=== PATIENT | female | born 1940 | race Caucasian/White ===

== ENCOUNTER → 2024-09-14 21:15 | Outpatient (REF) | payer OTHER, SELFPAY ==
[2024-09-15 10:01] LABS: Urine Albumin 2+ (Neg - Trace); Urine Bilirubin Negative (Negative); Urine Character Slightly Cloudy (Clear); Urine Color Yellow; Urine Glucose Negative (Negative); Urine Ketone Negative (Negative); Urine Leukocyte 3+ (Negative); Urine Nitrite Positive (Negative); Urine Occult Blood 2+ (Negative); Urine Specific Gravity 1.015 (<1.030); Urine Urobilinogen Negative (Neg - 1+)
[2024-09-15 10:51] LABS: Urine Bacteria Few (Negative); Urine Calcium Oxalate Crystals Present; Urine Mucus Few; Urine White Cell 50-60 /HPF (0-5)
== END ==
LOC: CLAB 21:15
PROVIDERS: ATTENDING PHYSICIAN Student in an Organized Health Care Education/Training Program
DX: R30.9 Painful micturition, unspecified (principal)
CPT/HCPCS: 81003; 81015; 87077; 87086

== ENCOUNTER → 2024-11-05 11:22 | Outpatient (REF) | payer OTHER, SELFPAY ==
[2024-11-05 13:02] LABS: ALT (SGPT) 15 U/L (0-35); AST (SGOT) 20 U/L (14-36); Albumin 3.9 g/dl (3.5-5.0); Alkaline Phosphatase 76 U/L (38-126); Blood Urea Nitrogen 24 mg/dl (7-17); Calcium 8.8 mg/dl (8.4-10.2); Carbon Dioxide 33 mmol/L (22-30); Chloride 102 mmol/L (98-107); Glucose 100 mg/dl (70-99); Potassium 3.5 mmol/L (3.5-5.1); Sodium 142 mmol/L (135-145); Total Bilirubin 0.6 mg/dl (0.2-1.3); Total Protein 6.7 g/dl (6.3-8.2); eGFR 49.55
== END ==
LOC: OLABN 11:22
PROVIDERS: ATTENDING PHYSICIAN Student in an Organized Health Care Education/Training Program
DX: I10 Essential (primary) hypertension (principal)
CPT/HCPCS: 36415; 80053

== ENCOUNTER 2024-11-12 11:10 | Emergency (ER) | payer OTHER, SELFPAY ==
[2024-11-12] VITALS (7 sets, daily range): BP systolic 79–136; BP diastolic 41–57; BMI 46.7
[2024-11-12 11:46] LABS: % Basophils 0.3 % (0-2); % Immature Granulocytes 0.3 % (0-0.5); % Lymphocytes 34.7 % (20.5-51.1); % Monocytes 8.6 % (1.7-9.3); % Neutrophils 55.1 % (42.2-75.2); Absolute Eosinophils 0.1 10^3/uL (0-0.7); Absolute Lymphocytes 2.4 10^3/uL (1.2-3.4); Absolute Monocytes 0.6 10^3/uL (0.1-0.6); Absolute Neutrophils 3.8 10^3/uL (1.4-6.5); Hematocrit 40.3 % (37.0-47.0); Hemoglobin 12.5 g/dL (12.0-16.0); Mean Corpuscular Hgb 28.7 pg (27.0-31.0); Mean Corpuscular Volume 92.6 fL (81.0-99.0); Mean Platelet Volume 10.3 fL (7.4-10.4); Nucleated Red Blood Cells % 0 %; Platelet Count 175 10^3/uL (130-400); Red Blood Cell Count 4.35 10^6/uL (4.20-5.40); Red Cell Dist. Width 15.2 % (11.5-14.5)
[2024-11-12 12:28] LABS: NT-proBNP 1350 pg/ml; Troponin I 0.016 ng/ml
[2024-11-12 13:22] LABS: Blood Urea Nitrogen 26 mg/dl (7-17); Calcium 8.5 mg/dl (8.4-10.2); Carbon Dioxide 39 mmol/L (22-30); Chloride 103 mmol/L (98-107); Estimated Creatinine Clearance 42 ml/min; Glucose 87 mg/dl (70-99); Sodium 142 mmol/L (135-145); eGFR 49.55
[2024-11-12] MEDS: NSS 500 IV (13:33)
[2024-11-12 14:58] LABS: Urine Albumin 2+ (Neg - Trace); Urine Bilirubin Negative (Negative); Urine Character Clear (Clear); Urine Color Yellow; Urine Glucose Negative (Negative); Urine Ketone Negative (Negative); Urine Leukocyte 3+ (Negative); Urine Nitrite Positive (Negative); Urine Occult Blood 2+ (Negative); Urine Urobilinogen Negative (Neg - 1+); Urine pH 6.5 (5.0-9.0)
--- NOTE | 2024-11-12 14:59 | ED.GENMED ---
Addendum entered and electronically signed by Silvano Ford PA-C 11/14/24 06:18:
100k CFU gm neg bacilli on UCx...pt on cephalexin from prior prescriber, await C&S for change in therapy if needed
Original Note:
History of Present Illness
General
Chief Complaint: Heart Rate Problem
Time Seen by Provider: 11/12/24 12:24
History of Present Illness
History of Present Illness:
Note:
CHIEF COMPLAINT(S)
Dizziness and near-syncope while straining during a bowel movement.
HISTORY OF PRESENT ILLNESS
The patient is an 84-year-old female with a history of using cardiac medications. She presented with dizziness and a near-syncope episode experienced while straining during a bowel movement. The patient stated, 'I felt weird,' and experienced black
spots in front of her eyes, dry heaves, and a brief episode of vomiting which she described as 'some liquid.' At the time of the event, her heart rate was noted to be 37 beats per minute. Upon arrival at the medical facility, she reported feeling
better, stating, 'It went away.' The decision to seek medical attention was due to concerns about her heart rate and potential cardiac issues. Upon examination, there was no current chest pain or difficulty breathing. The patient was using
supplemental oxygen intermittently but does not require it continuously. There have been no recent episodes of diarrhea. The patient was previously prescribed cephalexin for a UTI
CHRONIC MEDICAL CONDITIONS SIGNIFICANTLY AFFECTING CARE
The patient is on metoprolol and amiodarone for atrial fibrillation. She experienced rectal bleeding with previous blood thinner use.
MEDICATIONS
The patient is currently on metoprolol and amiodarone for management of atrial fibrillation.
REVIEW OF SYSTEMS
- Cardiovascular: Mild bradycardia noted
- Gastrointestinal: Near-syncope during bowel movement, brief vomiting described as 'some liquid'
- Respiratory: No current chest pain or difficulty breathing
- Neurological: Dizziness, visual disturbances described as 'black things in front of my eyes'
PHYSICAL EXAM
- Neurological: Cranial nerve exam II through XII grossly intact
- Cardiovascular: Heart with regular rate and rhythm, mild bradycardia, no murmurs
- Respiratory: Lungs clear to auscultation
- Abdominal: Soft and non-tender
- Musculoskeletal: Moves all extremities freely
- Nursing notes reviewed and vital signs reviewed
PROBLEM LIST
Acute Problems:
- Near-syncope episode
- Bradycardia
Chronic Problems:
- Atrial fibrillation
PLAN
- Check blood work and provide fluids to maintain blood pressure
- Monitor telemetry
- Educate the patient that the symptoms are consistent with a vasovagal episode, possibly exacerbated by her cardiac medications
DIFFERENTIAL DIAGNOSIS
The Differential Diagnosis includes, in no particular order and is not limited to:
1. Vasovagal syncope
2. Cardiac arrhythmia
3. Hypotension
4. Orthostatic hypotension
5. Dehydration
6. Anemia
7. Acute blood loss
8. Heart block
9. Medication side effects
10. Electrolyte imbalance
CARE-UPDATE
11/12/24 - 13:31
BNP has significantly decreased compared to previous levels. Current chest X-ray findings do not suggest any signs of congestive heart failure or pneumonia, supporting a stable pulmonary status. No changes are needed in the management plan based on
these results.
CARE-UPDATE
11/12/24 - 14:59
The patient is stable, without any new symptoms or problems noted during reassessment. Heart rate has slightly increased from previous records, now in the upper 50s, which may be influenced by metoprolol. Echocardiogram and blood tests are
satisfactory, with stable blood pressure and mean arterial pressure. Current medication regimen includes amiodarone to prevent atrial fibrillation episodes. Oxygen levels are optimal at 99% on 1L supplemental oxygen, suggesting sufficient pulmonary
function at this time. Discharge planned with transport by ambulance due to use of oxygen. If syncope recurs, consideration for an alternative to metoprolol for blood pressure management is advised, to be addressed with the primary physician.
Disposition:
SUMMARY OF ENCOUNTER
The patient, an 84-year-old female with a history of atrial fibrillation managed with amiodarone and metoprolol, experienced a near-syncope event associated with hypotension and bradycardia while straining during a bowel movement. This event is
consistent with vasovagal syncope. Upon arrival at the emergency department, the patients vitals were stable, but mild bradycardia was noted. Heart rate gradually improved during her stay in the ED. There was a review of records indicating
previously low normal heart rates. The patient reported no further symptoms, and no evidence of heart failure or heart block was noted.
DISPOSITION
Discharge to home.
ASSESSMENT
The episode is assessed as a vasovagal syncope likely exacerbated by straining and the patients current cardiac medication regimen, causing hypotension and bradycardia.
PLAN
Recommendations include monitoring for continued dizziness or near-syncopal events, which may necessitate down-titration of metoprolol. The patient is stable for discharge and advised to seek further evaluation if symptoms persist.
INDEPENDENT INTERPRETATION OF TESTS
My independent interpretation of telemetry monitoring indicates no evidence of heart block and stable cardiac status.
PATIENT EDUCATION AND COUNSELING
The patient was educated that the symptoms experienced are consistent with a vasovagal episode and explained the possible exacerbating role of her medications.
MEDICATION RECONCILIATION
Current medications include amiodarone and metoprolol. Adjustments may be considered based on the recurrence of symptoms.
MEDICAL DECISION MAKING
Number and Complexity of Problems Addressed: The evaluation focused on the acute presentation of near-syncope, with considerations for differential diagnoses including vasovagal syncope and arrhythmia. Data: Telemetry findings and record reviews of
heart rate history were considered in the management. Risk: Due to the bradycardia and hypotension observed, medication adjustments were considered for ongoing management.
Past History
Past History
ED Past Medical History: Arrthythmia (a flutter during this past admission 06/26-07/03/21 placed on Eliquis), HTN, Hypercholesterolemia, Hypothyroidism, Other (Chronic E Coli UTI) and Other (sarcoidosis, Hep C, diverticulitis)
ED Past Surgical History: Other ( 02/2013: vertical sleeve (weight loss surgery) multiple surgeries for renal calculi 2010: left hip replacement 2005: right hip replacement 1976: hysterectomy thymoma surgery 2019 right cataract 2018)
Social History
Tobacco: Non-smoker
Alcohol: None
Personal:
Living: residential
Phy Exam
Physical Exam
Physical Exam:
.
Course
Orders/Labs/Results
Orders:
Orders
11/12/24 11:17
Electrocardiogram (*1) Urgent
Reason for Study: Bradycardia / Tachycardia
EKG- Treatment ONCE
11/12/24 11:36
Complete Blood Count/With Diff Urgent
NT-proBNP Urgent
Troponin I Urgent
11/12/24 12:33
CR Chest - 2 Views Urgent
Comment:
Reason For Exam: near syncope
11/12/24 12:39
Basic Metabolic Panel Urgent
11/12/24 13:00
0.9% Sodium Chloride 500 ml [Nss] 500 ml IV BOLUS
11/12/24 14:51
Urinalysis Reflex To Culture Urgent
Date Specimen was Collected: 11/12/24
Time Specimen was Collected: 14:50
Urine Microscopic Reflex Cult Urgent
Urine Culture Urgent
TAVO Source: U
Specimen Description:
Date Specimen was Collected: 11/12/24
Time Specimen was Collected: 14:50
Abnormal Lab Results
11/12/24 11/12/24 11/12/24
11:36 12:39 14:51
MCHC 31.0 L g/dL
(33.0-37.0)
RDW 15.2 H %
(11.5-14.5)
Carbon Dioxide 39 H mmol/L
(22-30)
BUN 26 H mg/dl
(7-17)
Creatinine 1.1 H mg/dL
(0.6-1.0)
Ur Occult Blood Reflex 2+ A
(Negative)
Urine Nitrite (Reflex) Positive A
(Negative)
Leukocyte Esterase Rfl 3+ A
(Negative)
Urine RBC 7-10 A /HPF
(0-2)
Urine WBC (Reflex) >100 A /HPF
(0-5)
Urine Bacteria (Reflex) Many A
(Negative)
Urine Albumin (Reflex) 2+ A
(Neg - Trace)
11/12/24 11:36
11/12/24 12:39
Vital Signs
Initial and Last Documented VS:
Initial Vital Signs
Pulse Ox
90
11/12/24 11:17
Last Documented Vital Signs
Temp Pulse Resp BP Pulse Ox
98.2 F 49 17 121/53 97
11/12/24 11:22 11/12/24 16:45 11/12/24 16:45 11/12/24 16:00 11/12/24 16:45
*Critical Care Note
Total Time (30-74mins, 75-104mins- exclusive of procedures): Not Applicable
ED Attending Note
-
Portions of this chart may have been created with voice recognition software.� Occasional wrong word or��sound alike� substitutions may have occurred due to the inherent limitations of voice recognition software.
Discharge Plan
Departure
Patient Disposition: Home (Routine Discharge)
Date of Disposition: 11/12/24
Time of Disposition: 15:01
Patient with high blood pressure during this ER visit?: No
Discharge Problem:
Syncope, vasovagal
Instructions: Vasovagal Response (DC)
Prescriptions:
No Action
biotin 5,000 MCG tablet,disintegrating
1 mcg PO DAILY
Apple Cider Vegan Gummies
1 ea PO BID
multivitamin 1 EACH tablet
1 tab PO DAILY
methenamine hippurate [Hiprex] 1 GM tablet
1 gm PO DAILY
ascorbic acid (vitamin C) [Vitamin C With Gerda Hips] 500 MG tablet
500 mg PO BID
levothyroxine 125 MCG tablet
125 mcg PO DAILY
zinc gluconate 50 MG tablet
1 tab PO DAILY
magnesium 200 MG tablet
400 mg PO HS
coenzyme [id number] E 1 CAP capsule
100 mg PO DAILY
vitamins A,C,P-afkc-cidppt [PreserVision AREDS] 1 CAP capsule
1 cap PO BID
Chlorophyll
50 mg PO DAILY
Cholecalciferol (Vitamin D3) [Vitamin D3] 50 MCG Capsule
1 cap PO BID
Circulation & Vein Support
2 cap PO DAILY
Collagen Peptides
1 scoop PO DAILY
Cranberry Fruit Concentrate
4,200 mg PO BID
Cyanocobalamin (Vitamin B-12) [Vitamin B12] 5,000 MCG Tab.Rapdis
5,000 mcg PO DAILY
Equate Fiber Powder
1 scoop PO DAILY
Friendly Leila
1 cap PO DAILY
Immune Factors
2 cap PO BID
Konsyl Daily Fiber Powder
1 tsp PO DAILY
Multienzyme Formula
1 tab PO PRN PRN (Reason: digestion)
Organic Marcia 100% Lemon Powder
9 gm PO DAILY
Patient Comments:
in 8 oz water
Potassium Gluconate
595 mg PO DAILY
Probiotic Otc
1 tab PO BID
Pyrroloquinoline Quinone
40 mg PO DAILY
Quinine Herbal Supplement
2 cap PO DAILY
Vitamin K2
50 mcg PO DAILY
furosemide 40 MG tablet
40 mg PO DAILY Qty: 30 5RF
amiodarone [Pacerone] 200 MG tablet
200 mg PO BID Qty: 1 0RF
Rx Instructions:
Please take amiodarone 200mg twice daily for 2 weeks then decrease to 200mg daily
atorvastatin 10 MG tablet
10 mg PO QPM Qty: 1 0RF
acetaminophen 325 MG tablet
650 mg PO Q4HPRN PRN (Reason: mild pain/GRAY/temp> 100.4F) 0RF
polyethylene glycol 3350 17 GRAMS powder in packet
17 grams PO DAILY 0RF
metoprolol succinate 50 MG tablet extended release 24 hr
50 mg PO DAILY 0RF
miconazole nitrate [Miconazorb AF] 1 APPLIC powder
0 applic topical BID 0RF
magnesium hydroxide 30 ML suspension
30 ml PO DAILYPRN PRN (Reason: constipation) 0RF
ferrous sulfate [Feosol] 325 MG tablet
325 mg PO DAILY Qty: 30 0RF
docusate sodium 100 MG capsule
100 mg PO BID 0RF
apixaban [Eliquis] 5 MG tablet
5 mg PO BID 0RF
cefuroxime axetil 500 MG tablet
500 mg PO BID Qty: 0 0RF
Referrals:
Channing Garcia DO [Family Provider, Family Practice]
Interventions
Interventions:
*Risk Screen - Suicide Last Done: 11/12/24 11:22
*General Assessment Last Done: 11/12/24 11:22
*Neglect/Abuse Screening Last Done: 11/12/24 11:22
*ED- Fall Risk Assessment Last Done: 11/12/24 11:22
*ED COVID-19 Vaccine History Last Done: 11/12/24 11:22
*Nursing Disposition Last Done: 11/12/24 17:08
ED- Cardiac Assessment Last Done: 11/12/24 11:22
ED- Pulmonary Assessment Last Done: 11/12/24 11:22
Discharge Date and Time
Discharge Date/Time: 11/12/24 17:08
Print Language: KOSOVAN
[2024-11-12 15:39] LABS: Urine Bacteria Many (Negative); Urine Squamous Cell >30 /LPF (Few); Urine White Cell >100 /HPF (0-5)
== END 2024-11-12 17:08 ==
LOC: EMR 11:10
PROVIDERS: Physician Assistant; EMERGENCY PHYSICIAN Emergency Medicine; FAMILY PHYSICIAN Student in an Organized Health Care Education/Training Program
DX: R55 Syncope and collapse (principal); I48.91 Unspecified atrial fibrillation; E03.9 Hypothyroidism, unspecified; E78.00 Pure hypercholesterolemia, unspecified; I10 Essential (primary) hypertension
CPT/HCPCS: 96360; 99284; 71046; 80048; 81003; 81015; 83880; 84484; 85025; 87077; 87086; 93005